=== PATIENT | female | born 1995 | race Two or more races ===

== ENCOUNTER 2021-05-30 00:47 | Emergency (ER) | payer OTHER ==
[~2021-05-30] VITALS: Ht 160 cm; Wt 83.9 kg
[2021-05-30] MEDS ORDERED: PRENA1 TRUE CO1 EACH (01:16)
[2021-05-30] MEDS ORDERED: CYCLOBENZAPRINE5 MG PO (06:17)
[2021-05-30] MEDS ORDERED: ACETAMINOPHEN650 M2 PO (06:17)
== END 2021-05-30 06:56 | disposition home or self-care (01) ==
LOC: ER 00:47
DX: M54.6 Pain in thoracic spine (principal); M62.830 Muscle spasm of back; Z3A.17 17 weeks gestation of pregnancy

== ENCOUNTER 2021-08-16 21:32 | Emergency (ER) | payer OTHER ==
[~2021-08-16] VITALS: Ht 160 cm; Wt 89.4 kg
[~2021-08-16 21:32] MED LIST: ACETAMINOPHEN650 M2 PO; CYCLOBENZAPRINE5 MG PO; PRENA1 TRUE CO1 EACH
[2021-08-16] MEDS ORDERED: CHILDREN'S ASPI81 MG PO (21:50)
== END 2021-08-17 01:08 | disposition home or self-care (01) ==
LOC: ER 21:32
DX: J40 Bronchitis, not specified as acute or chronic (principal); J45.901 Unspecified asthma with (acute) exacerbation; Z03.818 Encounter for observation for suspected exposure to other biological agents ruled out

== ENCOUNTER 2021-10-31 20:44 | Inpatient (IN) | payer OTHER ==
[~2021-10-31] VITALS: Ht 160 cm; Wt 98.9 kg
[~2021-10-31 20:44] MED LIST changes: +CHILDREN'S ASPI81 MG PO
== END 2021-11-03 15:02 | disposition home or self-care (01) | DRG 807 ==
LOC: LDR 20:44 → OB/GYN 20:44
PROVIDERS: ADMIT Obstetrics & Gynecology; ATTEND Obstetrics & Gynecology
PROC: 10E0XZZ Delivery of Products of Conception, External Approach (ICD-10-PCS; principal; 2021-10-31)
PROC: 0W8NXZZ Division of Female Perineum, External Approach (ICD-10-PCS; 2021-10-31)
PROC: 4A1HXCZ Monitoring of Products of Conception, Cardiac Rate, External Approach (ICD-10-PCS; 2021-10-31)
DX: O80 Encounter for full-term uncomplicated delivery (principal); Z37.0 Single live birth; Z3A.39 39 weeks gestation of pregnancy; Z20.822 Contact with and (suspected) exposure to COVID-19

== ENCOUNTER 2023-07-31 16:01 | Emergency (ER) | payer OTHER ==
[~2023-07-31] VITALS: Ht 160 cm; Wt 81.6 kg
== END 2023-07-31 19:17 | disposition home or self-care (01) ==
LOC: ER 16:01
DX: J06.9 Acute upper respiratory infection, unspecified (principal); Z20.822 Contact with and (suspected) exposure to COVID-19